=== PATIENT | female | born 1985 | race Caucasian/White ===

== ENCOUNTER 2017-05-11 21:09 | Emergency (ER) | payer OTHER ==
[~2017-05-11] VITALS: Ht 162.6 cm; Wt 68.2 kg
[2017-05-11 21:12] VITALS: BP 114/72; PULSE 76; RESP 20; O2SAT 98
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
[2017-05-12] MEDS ORDERED: Dexamethasone 10 mg/mL Inj IM ONE
[2017-05-12 00:53] VITALS: BP 98/60; PULSE 55; RESP 18; O2SAT 100
== END 2017-05-12 00:45 | disposition home or self-care (01) ==
LOC: SED 21:09
DX: M54.5 Low back pain (principal); Z88.1 Allergy status to other antibiotic agents
CPT/HCPCS: 96372; 99284; J1100; J1885